=== PATIENT | female | born 1985 | race Caucasian/White ===

== ENCOUNTER 2018-07-04 21:39 | Emergency (ER) | payer SELFPAY ==
[2018-07-04 21:43] VITALS: TEMP 98; BMI 26.6
--- NOTE | 2018-07-04 22:16 | PDOC ---
History of Present Illness - General History Source: Patient, Spouse - History of Present Illness Initial Comments: 07/04/18 22:48 33-year-old female "5 months "came from [place] 2 weeks ago. Complaining of headache, throat pain, nasal congestion. Denies photophobia , nausea, vomiting, abdominal pain, vaginal bleeding or vaginal discharge, fevers/chills. Patient took Tylenol at 1 PM. No past medical history. 07/04/18 22:49 <Gabriella Shaw - Last Filed: 07/04/18 23:09> <Celso Pacheco - Last Filed: 07/04/18 23:33> - General Chief Complaint: Headache Stated Complaint: HEADACHE Time Seen by Provider: 07/04/18 22:10 Past History - Past Medical History COPD: No - Suicide/Smoking/Psychosocial Hx Smoking History: Never smoked <Gabriella Shaw - Last Filed: 07/04/18 23:09> <Celso Pacheco - Last Filed: 07/04/18 23:33> - Past Medical History Allergies/Adverse Reactions: Allergies Allergy/AdvReac Type Severity Reaction Status Date / Time No Known Allergies Allergy Verified 07/04/18 21:43 Review of Systems - Review of Systems Able to Perform ROS?: Yes Is the patient limited [place] proficient: No Constitutional: No: Symptoms Reported, See HPI, Chills, Diaphoresis, Fever, Loss of Appetite, Malaise, Night Sweats, Weakness, Weight Stable, Unintentional Wgt. Loss, Unexplained wgt Loss, Other HEENTM: Yes: Nose Congestion, Throat Pain ABD/GI: No: Symptoms Reported, See HPI, Abdominal Distended, Abd. Pain w/ defecation, Blood Streaked Bowels, Constipated, Diarrhea, Difficulty Swallowing , Nausea, Poor Appetite, Poor Fluid Intake, Rectal Bleeding, Vomiting, Indigestion, Abdominal cramping, Tarry Stools, Other : No: Symptoms Reported, See HPI, Burning, Dysuria, Discharge, Frequency, Flank Pain, Hematuria, Incontinence, Pain, Urgency, Testicular Mass, Testicular Swelling, Lesions, Testicular Pain, Other Neurological: Yes: Headache <Gabriella Shaw - Last Filed: 07/04/18 23:09> *Physical Exam - Vital Signs Last Vital Signs Temp Pulse Resp BP Pulse Ox 98.0 F 109 H 18 102/75 99 07/04/18 21:41 07/04/18 21:41 07/04/18 21:41 07/04/18 21:41 07/04/18 21:41 - Physical Exam General Appearance: Yes: Appropriately Dressed HEENT: positive: Pharyngeal Erythema. negative: EOMI, JAY, Normal ENT Inspection, Normal Voice, Symmetrical, TMs Normal, Pharynx Normal, Pale Conjunctivae, Photophobia, Scleral Icterus (R), Scleral Icterus (L), Muffled/ Hoarse voice, Tonsillar Exudate, Tonsillar Erythema, Nasal Congestion, Rhinorrhea, Sinus Tenderness, Orbits, Hearing Decreased, Hearing Grossly Normal , TM Bulging, TM Dull, TM Erythema, Lesions, Butler, Excessive drooling, Thrush, Other Neck: negative: Lymphadenopathy (R), Lymphadenopathy (L) Respiratory/Chest: positive: Lungs Clear, Normal Breath Sounds Cardiovascular: positive: Tachycardia Gastrointestinal/Abdominal: positive: Normal Bowel Sounds, Soft. negative: Tender Integumentary: positive: Normal Color, Dry, Warm Neurologic: positive: bowl topper II-XII NML intact, Fully Oriented, Alert, Normal Mood/ Affect, Normal Response, Motor Strength 5/5 <Gabriella Shaw. - Last Filed: 07/04/18 23:09> - Vital Signs Last Vital Signs Temp Pulse Resp BP Pulse Ox 98.0 F 109 H 18 102/75 99 07/04/18 21:41 07/04/18 21:41 07/04/18 21:41 07/04/18 21:41 07/04/18 21:41 <Celso Pacheco - Last Filed: 07/04/18 23:33> ED Treatment Course - ADDITIONAL ORDERS Additional order review: Laboratory Results 07/04/18 22:26 Urine Color Yellow Urine Appearance Cloudy Urine pH 6.5 Ur Specific [place] 1.020 Urine Protein Negative Urine Glucose (UA) Negative Urine Ketones Negative Urine Blood Negative Urine Nitrite Negative Urine Bilirubin Negative Urine Urobilinogen 0.2 Ur Leukocyte Esterase Negative - Medications Given in the ED: ED Medications Discontinued Medications Generic Name Dose Route Start Last Admin Trade Name Freq PRN Reason Stop Dose Admin Acetaminophen 975 mg 07/04/18 22:31 07/04/18 22:44 Tylenol - PO 07/04/18 22:32 975 mg ONCE ONE Administration <Celso Pacheco - Last Filed: 07/04/18 23:33> Progress Note - Progress Note Progress Note: A: headache P: Influenza rapid strep UA urine culture <Gabriella Shaw - Last Filed: 07/04/18 23:09> Medical Decision Making - Medical Decision Making 07/04/18 23:09 patient is drinking a pitcher of water now. <Gabriella Shaw - Last Filed: 07/04/18 23:09> - Medical Decision Making 07/04/18 23:32 Urinalysis is unremarkable. Appointed testing is negative. Rapid strep testing is negative. 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 It was explained to the patient that she needs to maintain adequate hydration take Tylenol as needed. Patient has verbalized understanding of discharge instructions. <Celso Pacheco - Last Filed: 07/04/18 23:33> *DC/Admit/Observation/Transfer <Gabriella Shaw. - Last Filed: 07/04/18 23:09> - Discharge Dispostion Decision to Admit order: No <Celso Pacheco - Last Filed: 07/04/18 23:33> Diagnosis at time of Disposition: Headache Qualifiers: Headache type: unspecified Headache chronicity pattern: acute headache Intractability: not intractable Qualified Code(s): R51 - Headache - Discharge Dispostion Disposition: HOME Condition at time of disposition: Stable - Patient Instructions Printed Discharge Instructions: DI for Headache Additional Instructions: Drink plenty of fluids You may take Tylenol every 4-6 hours as needed for headache Follow-up with the [facility] as soon as possible. Return to the emergency room if symptoms worsen.
[2018-07-04] MEDS ORDERED: ACETAMINOPHEN 325 MG TABLET (FP) PO ONE (22:31)
[2018-07-04] MEDS ORDERED: ACETAMINOPHEN 325 MG TABLET (FP) ONE (22:34)
[2018-07-04 23:14] LABS: PH,URINE 6.5 (5.0-8.0); URINE APPEARANCE CLOUDY; URINE BILIRUBIN NEGATIVE (NEGATIVE); URINE COLOR YELLOW; URINE GLUCOSE (UA) NEGATIVE (NEGATIVE); URINE KETONE NEGATIVE (NEGATIVE); URINE LEUK ESTERASE NEGATIVE (NEGATIVE); URINE NITRITE NEGATIVE (NEGATIVE); URINE PROTEIN NEGATIVE (NEGATIVE); URINE UROBILINOGEN 0.2 mg/dL (0.2-1.0)
[2018-07-04 23:38] VITALS: BP 113/69; PULSE 89
== END 2018-07-04 23:38 | disposition home or self-care (01) ==
LOC: JER 21:39 → JERFT 21:39 → JER 23:38
DX: O99.89 Other specified diseases and conditions complicating pregnancy, childbirth and the puerperium (principal); R51 Headache; Z3A.20 20 weeks gestation of pregnancy
CPT/HCPCS: 81003; 87070; 87086; 87804; 87880; 99282-25

== ENCOUNTER 2018-11-29 03:34 | Inpatient (IN) | payer OTHER | END 2018-12-02 11:50 | disposition home or self-care (01) | LOC: JDEL 03:34 → JLDR 04:35 → J3W 10:37 ==

== ENCOUNTER 2021-05-16 10:41 | Emergency (ER) | payer OTHER ==
[2021-05-16 10:48] VITALS: BP 120/77; TEMP 97.8; BMI 34.9
[2021-05-16] MEDS ORDERED: ACETAMINOPHEN 1000 MG/100 ML BAG IVPB ONE (11:40)
[2021-05-16] MEDS ORDERED: SODIUM CHLORIDE 1,000 ML IV STA (11:40)
[2021-05-16] MEDS ORDERED: ACETAMINOPHEN INJECTION 100 ML IVPB ONE (11:49)
[2021-05-16 12:42] LABS: BASO % 0.3 % (0-2.0); EOS % 0.1 % (0-4.5); HEMATOCRIT 36.2 % (32.4-45.2); HEMOGLOBIN 11.5 GM/dL (10.7-15.3); LYMPH % 14.8 % (8-40); MCH 26.8 pg (25.7-33.7); MCHC 31.8 g/dl (32.0-36.0); MEAN CELL VOLUME 84.4 fl (80-96); MEAN PLT VOLUME 9.5 fl (7.5-11.1); MONO % 4.4 % (3.8-10.2); NEUT % 80.4 % (42.8-82.8); PLATELET COUNT 275 10^3/uL (134-434); RDW 13.8 % (11.6-15.6)
[2021-05-16 12:47] LABS: INR 1.09 (0.83-1.09); PROTHROMBIN TIME (PATIENT) 12.6 SEC (9.7-13.0)
[2021-05-16 13:03] LABS: ALBUMIN 3.1 g/dl (3.4-5.0); BLOOD UREA NITROGEN 11.7 mg/dL (7-18); CALCIUM 9.7 mg/dL (8.5-10.1)
[2021-05-16 13:07] LABS: CREATININE 0.8 mg/dL (0.55-1.3)
[2021-05-16 13:09] LABS: BILIRUBIN,TOTAL 0.5 mg/dL (0.2-1)
[2021-05-16 13:37] LABS: PH,URINE 5.5 (5.0-8.0); URINE APPEARANCE CLEAR; URINE BILIRUBIN NEGATIVE (NEGATIVE); URINE COLOR YELLOW; URINE GLUCOSE (UA) NEGATIVE (NEGATIVE); URINE KETONE 1+ (NEGATIVE); URINE LEUK ESTERASE NEGATIVE (NEGATIVE); URINE NITRITE NEGATIVE (NEGATIVE); URINE PROTEIN TRACE (NEGATIVE); URINE UROBILINOGEN 0.2 mg/dL (0.2-1.0)
[2021-05-16 14:03] LABS: HCG,QUALITATIVE URINE Positive
[2021-05-16] MEDS ORDERED: morphine CARPU-JECT 4 MG/1 ML DISP.SYRIN IVPUSH ONE (15:56)
[2021-05-16] MEDS ORDERED: morphine SULFATE 4 MG/ML VIAL ONE (15:58)
[2021-05-16 18:13] VITALS: PULSE 98
[2021-05-16] MEDS ORDERED: ONDANSETRON *ODT* 4 MG TABLET SL ONE (18:19)
[2021-05-16] MEDS ORDERED: ONDANSETRON *ODT* 4 MG TABLET ONE (18:19)
== END 2021-05-16 18:22 | disposition short-term general hospital (02) ==
LOC: JERFT 10:41 → JER 10:41 → JERFT 18:22
PROC: 3E0333Z Introduction of Anti-inflammatory into Peripheral Vein, Percutaneous Approach (ICD-10-PCS; principal; 2021-05-16)
PROC: 3E033NZ Introduction of Analgesics, Hypnotics, Sedatives into Peripheral Vein, Percutaneous Approach (ICD-10-PCS; 2021-05-16)
PROC: 3E0337Z Introduction of Electrolytic and Water Balance Substance into Peripheral Vein, Percutaneous Approach (ICD-10-PCS; 2021-05-16)
DX: O00.90 Unspecified ectopic pregnancy without intrauterine pregnancy (principal)
CPT/HCPCS: 36415; 76815-TC; 80053; 81003; 84702; 84703; 85025; 85610; 86850; 86900; 86901; 87086; 87491; 87591; 96361; 96374; 96375; 99284-25; Q0162